=== PATIENT | female | born 1935 | race African-American/Black ===

== ENCOUNTER → 2019-01-23 | Outpatient (CLI) | payer OTHER ==
[~2019-01-23] MED LIST: ASPI-1393 PO; bp med; meloxicam
== END | disposition home or self-care (01) ==
LOC: RAD 13:53
PROVIDERS: ATTEND Internal Medicine Rheumatology
DX: M19.012 Primary osteoarthritis, left shoulder (principal); M19.011 Primary osteoarthritis, right shoulder
CPT/HCPCS: 73030

== ENCOUNTER 2025-06-07 17:26 | Emergency (ER) | payer OTHER ==
[~2025-06-07] VITALS: Ht 165.1 cm; Wt 85.0 kg
[~2025-06-07 17:26] MED LIST changes: -ASPI-1393 PO; +ASPI-1497 PO
[2025-06-07 17:28] VITALS: O2SAT 98
[2025-06-07 17:32] VITALS: BP 163/96; PULSE 91; RESP 19; TEMP 37.1; O2SAT 99
[2025-06-07] MEDS: ACETAMINOPHEN 325MG TABLET PO ONE (19:38)
[2025-06-07] MEDS: LIDOCAINE HCL 1% 20ML VIAL INFIL ONE (19:38)
[2025-06-07] MEDS ORDERED: ACET-2708 MT (23:38)
[2025-06-07] MEDS ORDERED: CEPH500T MT (23:38)
== END 2025-06-07 23:55 | disposition home or self-care (01) ==
LOC: ER 17:26
DX: S01.511A Laceration without foreign body of lip, initial encounter (principal); E11.9 Type 2 diabetes mellitus without complications; E78.00 Pure hypercholesterolemia, unspecified; I10 Essential (primary) hypertension; M17.11 Unilateral primary osteoarthritis, right knee; Z79.82 Long term (current) use of aspirin; Z79.84 Long term (current) use of oral hypoglycemic drugs; Z88.8 Allergy status to other drugs, medicaments and biological substances; W01.198A Fall on same level from slipping, tripping and stumbling with subsequent striking against other object, initial encounter; Y93.01 Activity, walking, marching and hiking; Y92.89 Other specified places as the place of occurrence of the external cause; Y99.8 Other external cause status
CPT/HCPCS: 99284; 70450; 73562; 72125; 12011; J2003